=== PATIENT | male | born 1965 | race Caucasian/White ===

== ENCOUNTER → 2019-06-04 12:12 | Outpatient (CLI) | payer OTHER ==
[2011-11-17 12:29] VITALS: BMI 32.7
== END | disposition home or self-care (01) ==
LOC: D.RAD 12:00
PROVIDERS: ATTEND Pediatrics
DX: Z02.71 Encounter for disability determination (principal)

== ENCOUNTER 2019-12-25 15:36 | Emergency (ER) | payer OTHER ==
[~2019-12-25] VITALS: Ht 177.8 cm; Wt 100.0 kg
[2019-12-25 15:45] VITALS: BP 121/72; Ht 177.8 cm; Wt 100.0 kg
[2019-12-25] MEDS ORDERED: KLONOPIN1 MG PO (15:49)
[2019-12-25] MEDS ORDERED: CYCLOBENZAPRINE10 MG PO (16:56)
== END 2019-12-25 17:13 | disposition home or self-care (01) ==
LOC: D.ER 15:36
DX: M54.2 Cervicalgia (principal); V89.2XXA Person injured in unspecified motor-vehicle accident, traffic, initial encounter; Y93.9 Activity, unspecified; Y92.9 Unspecified place or not applicable; M54.5 Low back pain